=== PATIENT | female | born 1980 | race African-American/Black ===

== ENCOUNTER → 2017-03-11 | Outpatient (REF) | LOC: WSOH 11:45 | DX: Z02.89 Encounter for other administrative examinations (principal) ==

== ENCOUNTER 2023-05-22 08:23 | Day surgery (SDC) | payer BC ==
[~2023-05-22] VITALS: Ht 170.2 cm; Wt 67.6 kg
[2023-05-22 09:01] VITALS: BP 113/62; PULSE 76; TEMP 97.8
[2023-05-22] MEDS ORDERED: MULTIPLE VITAMI1 CAP PO (09:04)
[2023-05-22 11:05] VITALS: BP 98/63; PULSE 78; TEMP 97.6
[2023-05-22 11:20] VITALS: BP 98/60; PULSE 64
[2023-05-22 11:35] VITALS: BP 105/54; PULSE 68
--- NOTE | 2023-05-22 12:25 | NUR ---
1105-PATIENT ARRIVED VIA CART TO [facility], DROWSY ON ARRIVAL. PT AMBULATED WITH X1 ASSIST TO RECLINER. WARM BLANKET PROVIDED, VITAL SIGNS TAKEN, VSS. PATIENT'S MOTHER AT BEDSIDE. PT DENIES PAIN OR NAUSEA. REPORT OBTAINED FROM JERZY MARTINEZ. 1120-VSS. PATIENT TOLERATING PO INTAKE WELL, DENIES COMPLAINTS 1135-VSS. DISCHARGE INSTRUCTIONS REVIEWED WITH PT, QUESTIONS INVITED. 1143-IV CATHETER DISCONTINUED, TIP INTACT. PRESSURE BANDAGE APPLIED. PATIENT AMBULATED WITH STEADY GAIT AND DRESSED INDEPENDENTLY. 1214-DR. NARVAEZ AT BEDSIDE TO DISCUSS FINDINGS WITH PT. DENIES FURTHER QUESTIONS 1220-PATIENT DISCHARGED HOME TO PO VIA WHEELCHAIR, ACCOMPANIED BY MOTHER. ALL BELONGINGS AND DC PAPERWORK SENT WITH PT.
== END 2023-05-22 12:20 | disposition home or self-care (01) ==
LOC: SDCO 08:23
DX: Z12.11 Encounter for screening for malignant neoplasm of colon (principal)
CPT/HCPCS: J2704; J3010; J7120